=== PATIENT | female | born 1955 | race Caucasian/White ===

== ENCOUNTER 2016-10-27 03:36 | Emergency (ER) | payer OTHER ==
[~2016-10-27] VITALS: Ht 167.6 cm; Wt 62.1 kg
[~2016-10-27 03:36] MED LIST: CLON1TAB4 PO; SOMA PO
--- NOTE | 2016-10-27 03:40 | NUR ---
PT BIBRA FOR MECHANICAL GROUND LEVEL FALL AT [facility]. PT STATES "I SLIP AND FELL ON SOAP/WATER" PT DENIES KO. PT C/O ELLIE PAIN AND LEFT UPPER LEG PAIN. PT AOX4 RR EVEN AND UNLABORED. NO SOB NOTED NAD NOTED. NO NVD AT THIS TIME. PT GOWNED AND PLACED ON MONITOR WAITING FOR MD LONGORIA.
--- NOTE | 2016-10-27 03:46 | NUR ---
XRAY AT BEDSIDE
[2016-10-27] MEDS ORDERED: IBUPROFEN 400 MG TABLET ONE (04:14)
[2016-10-27] MEDS ORDERED: IBUPROFEN 400 MG TABLET PO ONE (04:30)
[2016-10-27] MEDS ORDERED: NAPROXEN 250 MG TABLET ONE (05:04)
--- NOTE | 2016-10-27 05:10 | NUR ---
Patient discharged to home in stable condition. Written and verbal after care instructions given. Patient verbalizes understanding of instruction. ambulatory with a steady gait
[2016-10-27 05:11] VITALS: BP 120/79
[2016-10-27] MEDS ORDERED: NAPROXEN 500 MG TABLET PO SCH (05:30)
== END 2016-10-27 05:11 | disposition home or self-care (01) ==
LOC: ER 03:38
DX: S40.012A Contusion of left shoulder, initial encounter (principal); S70.02XA Contusion of left hip, initial encounter; B19.20 Unspecified viral hepatitis C without hepatic coma; W19.XXXA Unspecified fall, initial encounter; Y93.89 Activity, other specified; Y92.89 Other specified places as the place of occurrence of the external cause; Y99.8 Other external cause status
CPT/HCPCS: 72170; 73060; 73503; 73552; 99284; A4606; Z7610; 73510-TC; 73550-TC

== ENCOUNTER 2018-01-28 16:57 | Emergency (ER) | payer OTHER ==
[~2018-01-28] VITALS: Ht 167.6 cm; Wt 62.6 kg
[~2018-01-28 16:57] MED LIST changes: -CLON1TAB4 PO; +CLON1TAB5 PO
--- NOTE | 2018-01-28 17:05 | NUR ---
PT TO ER BED 11 C/O GENERALIZED BODY ACHES WORST TO L SHOULDER. PT DENIES ANY RECENT TRAUMA. R ANKLE SWELLING NO TRAUMA. AWAITING MD LONGORIA.
--- NOTE | 2018-01-28 17:29 | NUR ---
VELASQUEZ RUBBER GASKET INSPECTOR TRIMMER AT BEDSIDE FOR EVAL.
[2018-01-28] MEDS ORDERED: NAPROXEN 500 MG TABLET PO ONE (17:30)
[2018-01-28] MEDS ORDERED: NAPROXEN 250 MG TABLET ONE (17:33)
--- NOTE | 2018-01-28 17:37 | NUR ---
RADIOLOGY AT BEDSIDE FOR R ANKLE XRAY.
[2018-01-28] MEDS ORDERED: ONDANSETRON 4 MG TAB.RAPDIS SL ONE (19:00)
[2018-01-28] MEDS ORDERED: MORPHINE SULFATE INJ 2 MG/ML DISP.SYRIN IM ONE (19:00)
[2018-01-28] MEDS ORDERED: ONDANSETRON 4 MG TAB.RAPDIS ONE (19:04)
[2018-01-28] MEDS ORDERED: MORPHINE SULFATE INJ 4 MG/ML DISP.SYRIN ONE (19:04)
--- NOTE | 2018-01-28 19:13 | NUR ---
Patient discharged to home in stable condition. Written and verbal after care instructions given. Patient verbalizes understanding of instruction.
[2018-01-28 19:29] VITALS: BP 132/87
== END 2018-01-28 19:30 | disposition home or self-care (01) ==
LOC: ER 16:59
DX: G89.29 Other chronic pain (principal); M25.511 Pain in right shoulder; M25.551 Pain in right hip; M25.571 Pain in right ankle and joints of right foot; M54.30 Sciatica, unspecified side; F41.0 Panic disorder [episodic paroxysmal anxiety]; Z86.19 Personal history of other infectious and parasitic diseases
CPT/HCPCS: 73030; 93971; 96372; 99284; A4606; J2270; Q0162; Z7610

== ENCOUNTER 2020-12-16 11:31 | Inpatient (IN) | payer OTHER, MEDICARE ==
[~2020-12-16] VITALS: Ht 162.6 cm; Wt 67.6 kg
[~2020-12-16 11:31] MED LIST changes: +CLON1TAB12 PO; -CLON1TAB5 PO
--- NOTE | 2020-12-16 11:31 | NUR ---
PT KARMA FROM HOME C/O FENTANYL OD "WE FOUND HER IN THE BATH TUB NOT BREATHING" NARCAN 4MG IVP GIVEN BY EMS. PT IS AAOX3, NOT IN RESPIRATORY DISTRES, HOOKED TO O2 VIA NC AT 2 LPM AND SENIOR MAINFRAME PROGRAMMER ANALYST, KEPT RESTED AND COMFORTABLE. WILL CONTINUE TO MONITOR.
--- NOTE | 2020-12-16 11:36 | NUR ---
AT BEDSIDE FOR EVAL.
[2020-12-16] MEDS ORDERED: NALOXONE HCL 0.4 MG/ML AMPUL ONE (11:41)
--- NOTE | 2020-12-16 11:48 | NUR ---
IV LINE ESTABLISHED BLOOD DRAWN AND SENT TO LAB.
[2020-12-16 11:56] LABS: BASOPHILS # (AUTO) 0.1 K/uL (0.0-0.2); BASOPHILS % (AUTO) 0.7 % (0.0-2.0); EOSINOPHILS % (AUTO) 3.4 % (0.0-6.0); HEMATOCRIT 44 % (33-45); HEMOGLOBIN 14.6 g/dL (11.5-14.8); LYMPHOCYTES # (AUTO) 3.5 K/uL (0.8-4.8); LYMPHOCYTES % (AUTO) 46.8 % (20.0-44.0); MEAN CORPUSCULAR HGB CONC 33 g/dl (31.0-36.0); MEAN CORPUSCULAR VOLUME 93 fL (82-100); MONOCYTES # (AUTO) 0.6 K/uL (0.1-1.30); NEUTROPHILS # (AUTO) 3.1 K/uL (1.8-8.9); NEUTROPHILS % (AUTO) 41.1 % (43.0-81.0); PLATELET COUNT (AUTO) 308 K/uL (150-450); RED BLOOD CELL COUNT(AUTO) 4.76 MIL/uL (4.0-5.2); WHITE BLOOD COUNT (AUTO) 7.6 K/uL (4.3-11.0)
[2020-12-16 12:00] LABS: CALCIUM, SERUM 8.4 mg/dL (8.5-10.1); CARBON DIOXIDE 23 mmol/L (21-32); CHLORIDE 105 mmol/L (98-107); GLUCOSE 287 mg/dL (74-106); POTASSIUM 3.5 mmol/L (3.5-5.1); SODIUM SERUM 139 mmol/L (136-145); UREA NITROGEN, BLOOD 17 mg/dL (7-18)
[2020-12-16] MEDS ORDERED: IV NS 0.9% 1,000 ML BAG IV ONE ×2 (12:00→13:00)
[2020-12-16] MEDS ORDERED: NALOXONE HCL 0.4 MG/ML AMPUL IV ONE (12:00)
[2020-12-16] MEDS ORDERED: NALOXONE HCL 4 MG in IV NS 0.9% 240 ML IV PRN (12:00)
--- NOTE | 2020-12-16 12:04 | NUR ---
SUBMITTED MOVE SHEET
[2020-12-16 12:05] LABS: ACETAMINOPHEN < 2 ug/ml (10-30); ALANINE AMINOTRANSFERASE 19 U/L (12-78); ALBUMIN 3.2 g/dL (3.4-5.0); ALCOHOL, BLOOD < 3 mg/dL (0-0); ALKALINE PHOSPHATASE 88 U/L (46-116); ASPARTATE AMINOTRANSFERASE 18 U/L (15-37); BILIRUBIN,DIRECT 0.1 mg/dL (0.0-0.2); BILIRUBIN,TOTAL 0.5 mg/dL (0.2-1.0); TOTAL PROTEIN, SERUM 7.2 g/dL (6.4-8.2)
--- NOTE | 2020-12-16 12:07 | NUR ---
URINE SPECIMEN COLLECTED AND SENT TO LAB.
[2020-12-16 12:19] LABS: BILIRUBIN,URINE Negative (NEGATIVE); COLOR,URINE YELLOW (YELLOW); LEUKOCYTE ESTERASE ,URINE Negative (NEGATIVE); NITRITE, URINE Positive (NEGATIVE); PROTEIN,URINE >=300 mg/dl (NEGATIVE); UGLUCOSE 250 MG/DL mg/dL (NEGATIVE); UROBILINOGEN,URINE 0.2 EU/dL (0.2)
[2020-12-16] MEDS ORDERED: ONDANSETRON HCL/PF 4 MG/2 ML VIAL ONE (12:35)
[2020-12-16 12:59] LABS: BACTERIA,URINE 2+ /HPF (None Seen); SQUAMOUS EPITHELIAL CELL,UR Few /HPF (None Seen)
[2020-12-16] MEDS ORDERED: ONDANSETRON HCL/PF 4 MG/2 ML VIAL IV ONE (13:00)
--- NOTE | 2020-12-16 13:05 | NUR ---
ALYSIA WAKEFIELD DNP AT BEDSIDE FOR EVAL.
[2020-12-16] MEDS: PANTOPRAZOLE 40 MG TABLET.DR PO SCH (13:30)
[2020-12-16] MEDS ORDERED: MAGNESIUM HYDROXIDE 30 ML UDC PO PRN (13:30)
[2020-12-16] MEDS ORDERED: Z GUARD REMEDY 2 OZ OINT TP PRN (13:30)
[2020-12-16] MEDS ORDERED: MAG HYDROX/AL HYDROX/SIMETH 30 ML UDC PO PRN (13:30)
[2020-12-16] MEDS ORDERED: LORAZEPAM INJ 2 MG/ML VIAL IV PRN (13:30)
[2020-12-16] MEDS ORDERED: ACETAMINOPHEN 325 MG TABLET PO PRN (13:30)
[2020-12-16] MEDS ORDERED: ONDANSETRON HCL/PF 4 MG/2 ML VIAL IVP PRN (13:30)
[2020-12-16 14:28] LABS: SERUM AMMONIA 22 umol/L (11-32)
[2020-12-16] MEDS ORDERED: PANTOPRAZOLE 40 MG TABLET.DR PO ONE (15:29)
[2020-12-16] MEDS ORDERED: ENOXAPARIN SODIUM 40 MG/0.4 ML DISP.SYRIN SQ ONE (15:29)
[2020-12-16] MEDS: ENOXAPARIN SODIUM 40 MG/0.4 ML DISP.SYRIN SQ SCH (15:30)
--- NOTE | 2020-12-16 17:26 | NUR ---
GOT BED 326-2
--- NOTE | 2020-12-16 17:52 | NUR ---
REPORT GIVEN TO RANDI CLEMENTS FOR ANASTACIA. WITH ONGOING MELANIE CHOWDHURY
--- NOTE | 2020-12-16 19:00 | NUR ---
RECEIVED REPORT FROM STARR BRYAN DAY SHIFT Addendum: 12/17/20 at 0001 by LOR MENJIVAR RN RECEIVED REPORT FROM STARR BRYAN 3W DAY SHIFT
[2020-12-16 19:30] VITALS: BP 108/65
--- NOTE | 2020-12-16 20:30 | NUR ---
PT TRANSPORTED VIA STRETCHER TO UNIT AT THIS TIME. RECEIVED REPORT FROM STARR BRYAN @3W. PT ADMITTED TO TELE. A/O X4 PT ON PSYCH ASSISTANT READING SR @62, ROOM AIR, NO SOB OR APPARENT DISTRESS AT THE MOMENT. RESPIRATIONS EVEN AND UNLABORED,DENIES ANY PAIN OR DISCOMFORT. ACTIVE BOWEL SOUNDS AUSCULTATED THROUGHOUT. SKIN IS INTACT, WARM TO TOUCH,NON PITTING EDEMA NOTED ON R ANKLE. CAPILLARY REFILL <3 SECONDS, PULSES PRESENT BILATERALLY, GOOD CIRCULATION NOTED. IV ACCESS ON RAC G#18 AND RFA G#20, INTACT, PATENT AND FLUSHING WELL. ALL BELONGINGS ACCOUNTED FOR AND AT BEDSIDE. SAFETY PRECAUTIONS IN PLACE AND MAINTAINED AT ALL TIMES. BED IN LOWEST LOCKED POSITION, HOB ELEVATED, SIDE RAILS UPX2. CALL LIGHT AND TABLE WITHIN REACH, BED ALARM ON. WILL CONTINUE TO MONITOR
[2020-12-16 21:30] VITALS: BP 108/65
[2020-12-16] MEDS: IV NS 0.9% 1,000 ML IV PRN (23:24)
[2020-12-17] VITALS: BP 115/69
--- NOTE | 2020-12-17 02:56 | NUR ---
SPOKE WITH DR CHAPIN ELDER AND HE GAVE THE ORDER FOR PT TO BE ON REGULAR DIET. ORDERS READ BACK ENTERED AND CARRIED OUT
[2020-12-17 04:00] VITALS: BP 121/72
--- NOTE | 2020-12-17 06:00 | NUR ---
STILE RIPSAW OPERATOR CLOSING NOTE PT IS AWAKE IN BED, STABLE ON RA, NO SOB NOTED. NO S/S OF RESPIRATORY DISTRESS. PT IS AMBULATORY WITH [facility]. PT IS ON EXTERNAL OUTCOME ANALYST READING SB @59. IV ACCESS IS INTACT, PATENT, AND FLUSHING WELL. ALL NEEDS HAVE BEEN MET. ALL CARE, NEEDS, MEDICATIONS, AND TREATMENT ADMINISTERED ANTICIPATED PER ORDER. PT ENCOURAGED TO REPOSITION Q2H AND PRN. SAFETY, SEIZURE, AND ASPIRATION PRECAUTIONS MAINTAINED AT ALL TIMES. BED IN LOWEST LOCKED POSITION, HOB ELEVATED, SIDE RAILS UPX2. CALL LIGHT AND TABLE WITHIN REACH. WILL ENDORSE TO ONCOMING NURSE FOR ANASTACIA.
[2020-12-17 06:33] LABS: BASOPHILS % (AUTO) 0.1 % (0.0-2.0); EOSINOPHILS % (AUTO) 0.5 % (0.0-6.0); HEMATOCRIT 41 % (33-45); HEMOGLOBIN 13.5 g/dL (11.5-14.8); LYMPHOCYTES # (AUTO) 1.6 K/uL (0.8-4.8); LYMPHOCYTES % (AUTO) 19.2 % (20.0-44.0); MEAN CORPUSCULAR HGB CONC 33 g/dl (31.0-36.0); MEAN CORPUSCULAR VOLUME 93 fL (82-100); MONOCYTES # (AUTO) 0.6 K/uL (0.1-1.30); MONOCYTES % (AUTO) 6.8 % (2.0-12.0); NEUTROPHILS # (AUTO) 6.2 K/uL (1.8-8.9); NEUTROPHILS % (AUTO) 73.4 % (43.0-81.0); PLATELET COUNT (AUTO) 257 K/uL (150-450); RED BLOOD CELL COUNT(AUTO) 4.43 MIL/uL (4.0-5.2); WHITE BLOOD COUNT (AUTO) 8.5 K/uL (4.3-11.0)
[2020-12-17 07:22] LABS: THYROID STIMULATING HORMONE 1.37 uIU/mL (0.358-3.74)
--- NOTE | 2020-12-17 07:52 | NUR ---
TELE/RN OPENING NOTES RECEIVED PATIENT ON BED SLEEPING EASILY AWAKEN BY NAME AND LIGHT TOUCH. ALERT AND ORIENTED X3. PATIENT IN ROOM AIR SATURATING WELL. PATIENT IN NO APPARENT RESPIRATORY DISTRESS NOTED. NO COMPLAINED OF PAIN NOTED AT THIS TIME. TELE MONITOR READING SINUS RHYTHM 60 BP. WILL CONTINUE TO MONITOR.
[2020-12-17] MEDS: PANTOPRAZOLE 40 MG TABLET.DR PO SCH (08:38)
[2020-12-17 08:49] LABS: CALCIUM, SERUM 8.5 mg/dL (8.5-10.1); CREATININE 0.8 mg/dL (0.6-1.3); MAGNESIUM 1.8 mg/dL (1.8-2.4); PHOSPHORUS 3.5 mg/dL (2.5-4.9); POTASSIUM 3.6 mmol/L (3.5-5.1)
[2020-12-17 09:00] VITALS: BP 102/54
[2020-12-17] MEDS: IV NS 0.9% 1,000 ML IV PRN (10:14)
[2020-12-17 16:10] VITALS: BP 125/80
--- NOTE | 2020-12-17 17:29 | NUR ---
TELE/RN NOTES PATIENT COMPLAINED OF NAUSEA AND HEADACHE ZOFRAN 4 MG IV AND TYLENOL 650MG 1 TAB P.O. WAS GIVEN WILL CONTINUE TO MONITOR.
--- NOTE | 2020-12-17 18:59 | NUR ---
TELE/RN OPENING NOTES PATIENT IS ON BED ALERT AND ORIENTED X 3 EPISODE OF CONFUSION. PATIENT IN ROOM AIR SAO2 97% SATURATING WELL. PATIENT IN NO APPARENT RESPIRATORY DISTRESS NOTED. NO COMPLAINED OF PAIN NOTED AT THIS TIME. SEEN AND EXAMINED BY MD WITH ORDERS MADE AND CARRIED OUT. ALL DUE MEDICATIONS WAS GIVEN. IV ACCESS AT RIGHT AC # 18g PATENT AND INTACT AND RIGHT FOREARM # 20G WITH IV FLUID OF NS 1L AT 125ML/HR ON AND INFUSING WELL. SAFETY PRECAUTIONS WAS IN PLACED. BED IN LOWEST POSITION AND LOCKED. SIDE RAILS UP X2. WILL ENDORSED TO CHANGE ADVISOR FOR ANASTACIA. Addendum: 12/17/20 at 1903 by HUMA MARQUEZ RN ERROR
--- NOTE | 2020-12-17 19:03 | NUR ---
TELE/RN CLOSING NOTES PATIENT IS ON BED ALERT AND ORIENTED X 3 EPISODE OF CONFUSION. PATIENT IN ROOM AIR SAO2 97% SATURATING WELL. PATIENT IN NO APPARENT RESPIRATORY DISTRESS NOTED. NO COMPLAINED OF PAIN NOTED AT THIS TIME. SEEN AND EXAMINED BY MD WITH ORDERS MADE AND CARRIED OUT. ALL DUE MEDICATIONS WAS GIVEN. IV ACCESS AT RIGHT AC # 18g PATENT AND INTACT AND RIGHT FOREARM # 20G WITH IV FLUID OF NS 1L AT 125ML/HR ON AND INFUSING WELL. SAFETY PRECAUTIONS WAS IN PLACED. BED IN LOWEST POSITION AND LOCKED. SIDE RAILS UP X2. WILL ENDORSED TO ENTERPRISE PROJECT MANAGER FOR ANASTACIA.
--- NOTE | 2020-12-17 19:46 | NUR ---
AQUATIC ECOLOGIST OPENING NOTES RECEIVED PATIENT IN BED, ASLEEP, EASILY AWAKEN BY VERBAL AND TACTILE STIMULI. PATIENT IN ROOM AIR SATURATING WELL AT 95%. PATIENT IN NO APPARENT RESPIRATORY DISTRESS NOTED. NO COMPLAINTS OF PAIN AT THIS TIME. ON TELE MONITOR SHOWING SINUS RHYTHM HR AT 66. IV ACCESS ON RIGHT AC G#18, PATENT AND INTACT AND RIGHT FOREARM # 20G WITH ONGOING IV FLUID OF NS 1L AT 125ML/HR INFUSING WELL, NO REDNESS, NO S/SX OF INFILTRATION NOTED. SAFETY PRECAUTIONS WAS OBSERVED: BED IN LOWEST LOCKED POSITION, SIDE RAILS UP X2, CALL LIGHT WITHIN EASY REACH. WILL CONTINUE TO MONITOR PATIENT'S CURRENT STATUS.
[2020-12-17 20:00] VITALS: BP 122/82
[2020-12-17] MEDS: ENOXAPARIN SODIUM 40 MG/0.4 ML DISP.SYRIN SQ SCH (20:39)
[2020-12-18] VITALS: BP 113/67
[2020-12-18] MEDS: IV NS 0.9% 1,000 ML IV PRN (03:08)
[2020-12-18 04:00] VITALS: BP 143/65
[2020-12-18 06:28] LABS: BASOPHILS % (AUTO) 0.1 % (0.0-2.0); EOSINOPHILS % (AUTO) 0.9 % (0.0-6.0); HEMATOCRIT 39 % (33-45); HEMOGLOBIN 12.9 g/dL (11.5-14.8); LYMPHOCYTES % (AUTO) 19.5 % (20.0-44.0); MEAN CORPUSCULAR HGB CONC 33 g/dl (31.0-36.0); MEAN CORPUSCULAR VOLUME 92 fL (82-100); MONOCYTES # (AUTO) 0.6 K/uL (0.1-1.30); MONOCYTES % (AUTO) 5.9 % (2.0-12.0); NEUTROPHILS # (AUTO) 7.3 K/uL (1.8-8.9); NEUTROPHILS % (AUTO) 73.6 % (43.0-81.0); PLATELET COUNT (AUTO) 254 K/uL (150-450)
--- NOTE | 2020-12-18 06:34 | NUR ---
COMPOSING ROOM MACHINIST APPRENTICE CLOSING NOTES PATIENT IN BED, ASLEEP, EASILY AWAKEN BY VERBAL AND TACTILE STIMULI. PATIENT IN ROOM AIR TOLERATING WELL. PATIENT IN NO APPARENT DISTRESS NOTED. NO COMPLAINTS OF PAIN AT THIS TIME. ON TELE MONITOR SHOWING SINUS RHYTHM HR AT 90. IV ACCESS ON RIGHT AC G#18, PATENT AND INTACT AND RIGHT FOREARM # 20G WITH ONGOING IV FLUID OF NS 1L AT 125ML/HR INFUSING WELL, NO REDNESS, NO S/SX OF INFILTRATION NOTED. SAFETY PRECAUTIONS WAS OBSERVED AND MAINTAINED DURING THE SHIFT: BED IN LOWEST LOCKED POSITION, SIDE RAILS UP X2, CALL LIGHT WITHIN EASY REACH. ALL NEEDS ATTENDED AND MET. WILL ENDORSE TO MORNING NURSE FOR ANASTACIA.
[2020-12-18 06:38] LABS: CALCIUM, SERUM 8.1 mg/dL (8.5-10.1); CREATININE 0.7 mg/dL (0.6-1.3); MAGNESIUM 1.6 mg/dL (1.8-2.4); PHOSPHORUS 2.4 mg/dL (2.5-4.9)
--- NOTE | 2020-12-18 07:41 | NUR ---
MOBILITY MANAGER OPENING NOTES RECEIVED PATIENT IN BED, ASLEEP. PATIENT ON ROOM AIR; BREATHING EVEN AND UNLABORED, NO SOB PRESENT AT THIS TIME. TELE MONITOR WITH A CURRENT READING OF SR 77 BPM. NO S/S OF PAIN SUCH FACIAL GRIMACING, MOANING OR GUARDING NOTED. RAC G #18 AND RFA g #20 IV ACCESS PRESENT AND INTACT INFUSING NS @125 MLS/HR. SAFETY PRECAUTIONS IN PLACE; BED IN LOW POSITION AND LOCKED, RAILS UPX2, CALL LIGHT WITHIN REACH. WILL CONTINUE TO MONITOR PATIENT.
[2020-12-18] MEDS: PANTOPRAZOLE 40 MG TABLET.DR PO SCH (08:12)
[2020-12-18 08:24] VITALS: BP 129/86
[2020-12-18] MEDS ORDERED: K PHOS NEUTRAL 250 MG TABLET PO ONE (09:00)
[2020-12-18] MEDS: Magnesium 1GM/D5W 100ML PREMIX 100 ML IV SCH ×2 (09:17→10:39)
[2020-12-18 12:07] VITALS: BP 128/88
--- NOTE | 2020-12-18 13:50 | NUR ---
MOLD CARPENTERCERTIFIED MEDICAL TRANSCRIPTIONIST NOTES PATIENT DISCHARGED HOME IN MEDICALLY STABLE CONDITION. PATIENT AWAKE, A/O X4, ABLE TO MAKE NEEDS KNOWN. ALL DISCHARGE DOCUMENTATION READY; TEACHING PROVIDED REGARDING PHYSICIAN DISCHARGE ORDERS; PATIENT VERBALIZED UNDERSTANDING. BELONGINGS ACCOUNTED FOR AND FORM SIGNED WELL. SKIN INTACT. BEFORE LEAVING THE UNIT IV ACCESS WAS REMOVED WITH THE WRISTBAND. PATIENT WAS PICKED UP BY HER FRIEND. PATIENT LEFT THE UNIT ACCOMPANIED BY PUBLIC RELATIONS AND RN VIA WHEELCHAIR A [phone]. LEFT THE HOSPITAL IN A PRIVATE CAR.
--- NOTE | 2020-12-18 14:48 | NUR ---
Canvass Manager note: technical services assistant consult requested for substance use. Patient is a 65-year-old, male. SW was unable to interview the patient at the patient had already been discharged home. No further SS intervention, however, SW will remain available as needed.
== END 2020-12-18 13:40 | disposition home or self-care (01) | DRG 812 ==
LOC: ER 11:33 → TELE 16:39
PROVIDERS: ADMIT Nurse Practitioner Acute Care; ATTEND Internal Medicine
DX: T43.621A Poisoning by amphetamines, accidental (unintentional), initial encounter (principal); J96.01 Acute respiratory failure with hypoxia; G92 Toxic encephalopathy; E86.0 Dehydration; Z20.822 Contact with and (suspected) exposure to COVID-19; E88.09 Other disorders of plasma-protein metabolism, not elsewhere classified; E83.51 Hypocalcemia; F41.9 Anxiety disorder, unspecified; R40.2142 Coma scale, eyes open, spontaneous, at arrival to emergency department; R40.2362 Coma scale, best motor response, obeys commands, at arrival to emergency department; R40.2252 Coma scale, best verbal response, oriented, at arrival to emergency department; F15.188 Other stimulant abuse with other stimulant-induced disorder; Y92.009 Unspecified place in unspecified non-institutional (private) residence as the place of occurrence of the external cause; R73.9 Hyperglycemia, unspecified; Z86.19 Personal history of other infectious and parasitic diseases
CPT/HCPCS: 36415; 71045-TC; 80048-TC; 80061-TC; 80076-TC; 81001; 82140-TC; 82550-TC; 83735-TC; 84100-TC; 84443-TC; 84484-TC; 85025-TC; 87081-TC; 87086-TC; A6253; C9803; G0378; G0480; J1650; J2310; J2405; J3475; J7030; J7050

== ENCOUNTER 2024-07-25 18:41 | Emergency (ER) | payer MEDICARE, OTHER ==
[~2024-07-25] VITALS: Ht 167.6 cm; Wt 58.5 kg
[2024-07-25] MEDS ORDERED: HYDROCODONE/APAP 5/325MG TABLET ONE (19:49)
[2024-07-25] MEDS: HYDROCODONE/APAP 5/325MG TABLET PO ONE (19:55)
[2024-07-25] MEDS ORDERED: KETO10TA2 PO (21:28)
[2024-07-25 21:37] VITALS: BP 121/66; TEMP 98; O2SAT 97
== END 2024-07-25 21:37 | disposition home or self-care (01) ==
LOC: ER 18:48
DX: M25.562 Pain in left knee (principal); M11.262 Other chondrocalcinosis, left knee; M25.462 Effusion, left knee
CPT/HCPCS: 73564-TC; 93971-TC

== ENCOUNTER 2024-09-22 21:28 | Emergency (ER) | payer BC, OTHER ==
[~2024-09-22] VITALS: Ht 167.6 cm; Wt 60.8 kg
[~2024-09-22 21:28] MED LIST changes: -CLON1TAB12 PO; +KETO10TA2 PO; -SOMA PO
[2024-09-22 22:48] LABS: BASOPHILS % (AUTO) 0.4 % (0.0-2.0); EOSINOPHILS # (AUTO) 0.2 K/uL (0.0-0.7); EOSINOPHILS % (AUTO) 2.2 % (0.0-6.0); HEMATOCRIT 44 % (33-45); LYMPHOCYTES # (AUTO) 2.3 K/uL (0.8-4.8); MEAN CORPUSCULAR HEMOGLOBIN 30 PG (26.0-33.0); MEAN CORPUSCULAR HGB CONC 34 g/dl (31.0-36.0); MEAN CORPUSCULAR VOLUME 90 fL (82-100); MONOCYTES # (AUTO) 0.8 K/uL (0.1-1.30); MONOCYTES % (AUTO) 9.4 % (2.0-12.0); NEUTROPHILS # (AUTO) 4.8 K/uL (1.8-8.9); PLATELET COUNT (AUTO) 302 K/uL (150-450); RED BLOOD CELL COUNT(AUTO) 4.94 MIL/uL (4.0-5.2); RED CELL DISTRIBUTION WIDTH 13.3 % (11.5-15.0); WHITE BLOOD COUNT (AUTO) 8.1 K/uL (4.3-11.0)
[2024-09-22 22:55] LABS: CALCIUM, SERUM 9.8 mg/dL (8.5-10.1); CREATININE 0.9 mg/dL (0.6-1.3); POTASSIUM 3.6 mmol/L (3.5-5.1)
[2024-09-22 23:09] LABS: ALBUMIN 3.6 g/dL (3.4-5.0); BILIRUBIN,TOTAL 0.5 mg/dL (0.2-1.0); TOTAL PROTEIN, SERUM 8.3 g/dL (6.4-8.2)
[2024-09-22 23:35] LABS: APPEARANCE,URINE CLEAR (CLEAR); BILIRUBIN,URINE NEGATIVE (NEGATIVE); BLOOD, URINE TRACE-INTA Ery/uL (NEGATIVE); COLOR,URINE YELLOW (YELLOW); KETONES,URINE NEGATIVE (NEGATIVE); LEUKOCYTE ESTERASE ,URINE TRACE (NEGATIVE); NITRITE, URINE NEGATIVE (NEGATIVE); PROTEIN,URINE NEGATIVE (NEGATIVE); UGLUCOSE NEGATIVE (NEGATIVE); UROBILINOGEN,URINE 0.2 EU/dL (0.2)
[2024-09-22 23:51] LABS: ADD URINE CULTURE YES; BACTERIA,URINE Many /HPF (None Seen); SQUAMOUS EPITHELIAL CELL,UR Many /HPF (None Seen)
[2024-09-22] MEDS ORDERED: KETOROLAC TROMETHAMINE INJ 30 MG/ML VIAL ONE (23:55)
[2024-09-23] MEDS: KETOROLAC TROMETHAMINE INJ 30 MG/ML VIAL IM ONE (00:02)
[2024-09-23] MEDS ORDERED: GABA-532 PO (00:28)
[2024-09-23] MEDS ORDERED: NITR100C6 PO (00:28)
[2024-09-23 00:41] VITALS: BP 145/91; TEMP 98.7; O2SAT 97
== END 2024-09-23 00:42 | disposition home or self-care (01) ==
LOC: ER 21:32
DX: G89.29 Other chronic pain (principal); M54.9 Dorsalgia, unspecified; R10.31 Right lower quadrant pain; F19.10 Other psychoactive substance abuse, uncomplicated; Z87.19 Personal history of other diseases of the digestive system; Z86.69 Personal history of other diseases of the nervous system and sense organs; Z79.899 Other long term (current) drug therapy; Z86.19 Personal history of other infectious and parasitic diseases
CPT/HCPCS: 99285; 74176; 71045; 93005; 85025; 87077; 87040; 87086; 87186; 81001; 36415; 80053; 84484; 83880; 96372; J1885